=== PATIENT | female | born 1970 | race Caucasian/White ===

== ENCOUNTER 2017-07-08 22:27 | Emergency (ER) | payer MEDICAID ==
[2017-07-08] MEDS ORDERED: HYDROCODONE/APAP 5/325MG TABLET PO ONE ×2 (22:49→23:17)
--- NOTE | 2017-07-08 22:56 | Emergency Department Record ---
History of Present Illness - General Chief complaint: Extremity Problem Stated complaint: RT WRIST PAIN/STIFFNESS Time Seen by Provider: 07/08/17 22:41 Source: Patient Mode of Arrival: Ambulatory Limitations: No limitations - History of Present Illness Initial comments: 47 yo female presents to ED for evaluation of an injury to the right wrist that occurred 30 minutes [employer]. Patient reports previous surgery to the right wrist 3 months ago, reports "my wrist has not been normal since". Patient has been seeing a specialist at [facility] for further evaluation of her post-operative symptoms. Patient reports that tonight she "jerked her wrist away" from her while joking around, resulting in a twist-type injury to the wrist. Patient reports pain with palpation of the wrist as well as movement of index, middle, ring fingers that are held in flexion. MD Complaint: Extremity pain, Joint pain Onset/Timin -: Minutes(s) Location: Right History of Same: Yes -: Yes Arthralgia Severity scale (1-10): 9 Consistency: Constant Improves with: Nothing Worsens with: Nothing Associated Symptoms: Denies other symptoms - Related Data Home Medications Medication Instructions Recorded Confirmed Last Taken Butalb/Acetaminophen/Caffeine 1 each PO NOW 07/08/17 07/08/17 Unknown [Fioricet] Levomilnacipran HCl [Fetzima] 80 mg PO DAILY 07/08/17 07/08/17 Unknown Meclizine HCl 12.5 mg PO TID 07/08/17 07/08/17 Unknown Allergies Allergy/AdvReac Type Severity Reaction Status Date / Time No Known Drug Allergies Allergy Verified 07/08/17 22:42 Travel Screening - Travel/Exposure Within Last 30 Days Have you traveled within the last 30 days?: No - Travel/Exposure Within Last Year Have you traveled outside the [place] in the last year?: No - Additonal Travel Details Have you been exposed to anyone with a communicable illness?: No - Travel Symptoms Symptom Screening: None Review of Systems Constitutional: Denies: Chills, Fever, Malaise, Night sweats Eyes: Denies: Eye discharge, Eye pain ENT: Denies: Congestion, Ear pain, Epistaxis Respiratory: Denies: Cough, Dyspnea Cardiovascular: Denies: Chest pain, Dyspnea on exertion Endocrine: Denies: Fatigue, Heat or cold intolerance Gastrointestinal: Denies: Abdominal pain, Nausea, Vomiting Genitourinary: Denies: Incontinence, Retention Musculoskeletal: Reports: Arthralgia. Denies: Back pain, Gout, Joint swelling Skin: Denies: Bruising, Change in color Neurological: Denies: Abnormal gait, Confusion, Headache, Seizure Psychiatric: Denies: Anxiety Hematological/Lymphatic: Denies: Anemia, Blood Clots Past Medical History - SOCIAL HISTORY Smoking Status: Never smoker Alcohol Use: None Drug Use: None - RESPIRATORY Hx Respiratory Disorders: No - CARDIOVASCULAR Hx Cardio Disorders: No - NEURO Hx Neuro Disorders: No - GI Hx GI Disorders: No - Hx Genitourinary Disorders: No - ENDOCRINE Hx Endocrine Disorders: No - MUSCULOSKELETAL Hx Musculoskeletal Disorders: No - PSYCH Hx Psych Problems: No - HEMATOLOGY/ONCOLOGY Hx Hematology/Oncology Disorders: Yes Hx Cancer: Yes (uterine/surgery) Family Medical History Any Significant Family History?: No Physical Exam - General General Appearance: Alert, Oriented x3, Cooperative, Mild distress Limitations: No limitations - Head Head exam: Atraumatic, Normocephalic, Normal inspection Head exam detail: negative: Abrasion, Contusion, Clark's sign, General tenderness, Hematoma, Laceration - Eye Eye exam: Normal appearance. negative: Conjunctival injection, Periorbital swelling, Periorbital tenderness, Scleral icterus - ENT Ear exam: negative: Auricular hematoma, Auricular trauma Nasal Exam: negative: Active bleeding, Discharge, Dried blood, Foreign body Mouth exam: negative: Drooling, Laceration, Muffled voice, Tongue elevation - Neck Neck exam: Normal inspection. negative: Meningismus, Tenderness - Respiratory Respiratory exam: Normal lung sounds bilaterally. negative: Rales, Respiratory distress, Rhonchi, Stridor - Cardiovascular Cardiovascular Exam: Regular rate, Normal rhythm, Normal heart sounds Peripheral Pulses: 3+: Radial (R) - GI/Abdominal GI/Abdominal exam: Soft. negative: Rebound, Rigid, Tenderness - Rectal Rectal exam: Deferred - exam: Deferred - Extremities Extremities exam: Tenderness, Other (TTP to the wrist dorsally, TTP over the distal metacarpals of the 2nd, 3rd, and 4th digits with phalanges held in flexion. Patient reports that she is unable to flex or extend the digits on examination, however some degree of disability was present following her surgery 3 months ago.). negative: Calf tenderness, Pedal edema - Back Back exam: Denies: CVA tenderness (R), CVA tenderness (L) - Neurological Neurological exam: Alert, Normal gait, Oriented X3 - Psychiatric Psychiatric exam: Normal affect, Normal mood - Skin Skin exam: Normal color. negative: Abrasion Type of lesion: negative: abrasion Course Vital Signs 07/08/17 22:35 Temperature 98.0 F Pulse Rate 97 H Respiratory 20 Rate Blood Pressure 142/81 Pulse Ox 96 - Reevaluation(s) Reevaluation #1: 07/08/17 23:10 Right Wrist/Hand: No acute fracture identified. Patient updated on her preliminary results, will place in velcro splint with instructions for the patient to follow-up with her hand specialist at [facility] in 1-3 days as directed. Disposition Disposition: Discharge Clinical Impression: Sprain of wrist, right Qualifiers: Encounter type: initial encounter Qualified Code(s): S63.501A - Unspecified sprain of right wrist, initial encounter Disposition: Home, Self-Care Condition: (2) Stable Instructions: Wrist Sprain (ED) Additional Instructions: Return to ED if your symptoms worsen or if you have any concerns. Wrist splint as needed. Follow-up with your hand specialist at [facility] in 1-3 days as directed. Forms: Patient Portal Access Time of Disposition: 23:14 Quality - Quality Measures Quality Measures: N/A - Blood Pressure Screening Does Patient Have Any of the Following: No Blood Pressure Classification: Hypertensive Reading Systolic Measurement: 138 Diastolic Measurement: 104 Screening for High Blood Pressure: < First Hypertensive BP, F/U Documented > [ [id number]] First Hypertensive Follow-up Interventions: Referral to alternative/primary care provider.
--- NOTE | 2017-07-09 15:05 | RADIOLOGY REPORT ---
EXAM: RIGHT HAND, THREE VIEWS HISTORY: WRIST PAIN AFTER FEELING POP. TECHNIQUE: Three views of the right hand were obtained. Comparison: None. Encounter: Initial. FINDINGS: There is normal bone mineralization. No definite acute fracture nor dislocation. There is lucency involving the dorsal medial margin of the proximal aspect of the lunate. This area measures 3.7 mm. The medial margin is somewhat irregular. The etiology of this is uncertain. Diagnostic considerations include subchondral cyst or inflammatory erosion. The articular relations are otherwise maintained. No focal soft tissue abnormality. IMPRESSION: NO DEFINITE ACUTE FRACTURE NOR DISLOCATION. 3.7 MM LUCENT LESION WITHIN THE LUNATE HAVING RELATIVELY SCLEROTIC CENTRAL MARGINS, BUT AN IRREGULAR MARGIN NEAR THE ARTICULAR SURFACE. IT IS OF INDETERMINATE ETIOLOGY. A SUBCHONDRAL CYST IS THE MOST LIKELY ETIOLOGY. AN INFLAMMATORY EROSION, HOWEVER, CANNOT BE EXCLUDED. JOB NUMBER: [id number] MTDD
== END 2017-07-08 23:28 | disposition home or self-care (01) ==
LOC: ER 22:27
DX: S63.501A Unspecified sprain of right wrist, initial encounter (principal); X50.0XXA Overexertion from strenuous movement or load, initial encounter
CPT/HCPCS: 99283; 99284